=== PATIENT | male | born 1975 | race Caucasian/White ===

== ENCOUNTER 2016-08-30 21:38 | Emergency (ER) | payer OTHER ==
[~2016-08-30] VITALS: Ht 180.3 cm; Wt 90.7 kg
[2016-08-30] MEDS ORDERED: METOPROLOL SUCC25 M1 PO (22:24)
--- NOTE | 2016-08-30 22:39 | ED SKIN/ALLERGY COMPLAINT ---
History of Present Illness General Chief Complaint: Skin Rash/ Abcess Stated Complaint: ?ABCESS Source: patient Exam Limitations: no limitations Vital Signs & Intake/Output Vital Signs & Intake/Output Vital Signs Date Time Temp Pulse Resp B/P Pulse O2 O2 Flow FiO2 Ox Delivery Rate 08/30 2322 96.8 88 18 160/80 100 Room Air 08/30 2319 98 Room Air 08/30 2145 97.6 54 18 163/99 98 Room Air Allergies Coded Allergies: No Known Allergies (08/30/16) Triage Note: PT TO TRIAGE WITH C/O ABSCESS TO BACK OF NECK SINCE TUESDAY, +SHARP PAIN WITH NECK MOVEMENTS. NO OTHER COMPLAINTS. VSS. Triage Nurses Notes Reviewed? yes HPI: This patient is a 40-year-old male who presented to the emergency department today for evaluation of a lump to the back of his neck. The patient reported that he first noticed a lump on Tuesday. He reported that it seems to be getting bigger. He reported that it is occasionally painful and gets up to a 2 out of 10. He reported that sometimes the pain radiates down the back of his neck. The pain is intermittent. Worse with palpation. The patient denied any fevers, chills, chest pain, difficulty breathing, abdominal pain, or any other associated symptoms. (RYLAND HERRERA PA-C) Reconcile Medications Doxycycline Hyclate (Vibramycin) 100 MG CAPSULE 1 CAP PO BID ABSCESS Metoprolol Succinate 25 MG TAB 1 TAB PO DAILY BP (Reported) (TOM COATS,MERNA Alberto) Past History Travel History Traveled to [place] past 21 day No Medical History Any Pertinent Medical History? see below for history Cardiovascular: hypertension Surgical History Surgical History: non-contributory Psychosocial History What is your primary language [place] Tobacco Use: Never used Family History Hx Contributory? No (RYLAND HERRERA PA-C) Review of Systems Review of Systems Constitutional: Reports: no symptoms. EENTM: Reports: no symptoms. Respiratory: Reports: no symptoms. Cardiovascular: Reports: no symptoms. GI: Reports: no symptoms. Musculoskeletal: Reports: no symptoms. Skin: Reports: see HPI. Neurological/Psychological: Reports: no symptoms. All Other Systems: Reviewed and Negative (RYLAND HERRERA PA-C) Physical Exam Physical Exam General Appearance: well developed/nourished, no apparent distress, alert, awake Comments: Well-developed well-nourished person in no acute distress HEENT: Head normocephalic, moist mucous membranes Neck: Supple, no lymphadenopathy Back: Normal gait Respiratory: No respiratory distress. Speaking in full sentences Extremities: No edema, full range of motion Neuro: Alert and oriented x3 Psych: Mood affect normal, normal memory normal judgment. Skin: Warm and dry, no rash on exposed skin. Approximately 2 cm diameter, raised, fluctuant lesion to the posterior aspect of the patient's neck on the left side with mild tenderness to palpation, no drainage from the site, and no surrounding erythema or edema. (RYLAND HERRERA PA-C) Progress Differential Diagnosis: abscess/cellulitis, allergic reaction, contact dermatitis, drug reaction, urticaria Plan of Care: Orders Procedure Date/time Status HEAD & NECK CULTURE 08/30 2239 Active Microbiology 08/30 2302 HEAD/NECK: Head/Neck Culture - RECD 08/30 2302 HEAD/NECK: Gram Stain - RECD Departure Departure Disposition: HOME OR SELF CARE Condition: Stable Clinical Impression Primary Impression: Abscess Referrals: DONA BROWN MD (PCP/Family) Additional Instructions: Keep the wound site clean and dry. You may reapply the dressing daily with bacitracin. Warm compresses to the area. Please take the antibiotics as prescribed and for their full duration. Return to the emergency department in 3 -5 days for a wound check. Return sooner for any worsening symptoms or concerns. Departure Forms: Customer Survey General Discharge Information Prescriptions: Current Visit Scripts Doxycycline Hyclate (Vibramycin) 1 CAP PO BID #20 CAP (RYLAND HERRERA PA-C) PA/SALES FORECAST ANALYST Co-Sign Statement Statement: ED Attending supervision documentation- [] I saw and evaluated the patient. I have also reviewed all the pertinent lab results and diagnostic results. I agree with the findings and the plan of care as documented in the PA's/SALES FORECAST ANALYST's documentation. [X] I have reviewed the ED Record and agree with the PA's/SALES FORECAST ANALYST's documentation. [] Additions or exceptions (if any) to the PAs/SALES FORECAST ANALYST's note and plan are summarized below: [] (TOM COATS,MERNA Alberto) Procedures Incision and Drainage Site: POSTERIOR NECK Blade Size: 11 I & D Procedure: Yes: betadine prep, sterile drapes applied, sterile dressing applied. No: wick placed. Progress: Approximately 2 mL of 1% lidocaine with epinephrine was injected into the site. Significant amount of purulent drainage was obtained from the lesion site. Culture was sent to the lab. The patient will be discharged with oral antibiotics. Counseled to return in 3-5 days for a wound check. He tolerated the procedure well. (JAVIER HODGE,RYLAND)
[2016-08-30] MEDS ORDERED: VIBRAMYCIN100 MG PO (23:09)
[2016-08-30 23:23] VITALS: BP 160/80
== END 2016-08-30 23:23 ==
LOC: ERH 21:38
DX: L02.11 Cutaneous abscess of neck (principal)
CPT/HCPCS: 87070